=== PATIENT | female | born 1940 | race Two or more races ===

== ENCOUNTER 2023-02-26 12:53 | Inpatient (IN) | payer OTHER ==
[2023-02-26 15:03] LABS: BASO % 0.8 % (0-2.0); EOS % 2.4 % (0-4.5); HEMATOCRIT 39.9 % (32.4-45.2); HEMOGLOBIN 13.4 GM/dL (10.7-15.3); MCH 30.6 pg (25.7-33.7); MCHC 33.6 g/dl (32.0-36.0); MEAN CELL VOLUME 91.1 fl (80-96); MEAN PLT VOLUME 7.1 fl (7.5-11.1); MONO % 7.2 % (3.8-10.2); NEUT % 66.6 % (42.8-82.8); PLATELET COUNT 249 10^3/uL (134-434); RBC 4.38 M/mm3 (3.60-5.2); RDW 14.3 % (11.6-15.6); WHITE BLOOD COUNT 6.8 K/mm3 (4.0-10.0)
[2023-02-26 15:19] LABS: POTASSIUM 5.6 mmol/L (3.5-5.1)
[2023-02-26 15:21] LABS: CALCIUM 9.6 mg/dL (8.5-10.1)
[2023-02-26 15:22] LABS: ALBUMIN 3.4 g/dl (3.4-5.0); BLOOD UREA NITROGEN 23.7 mg/dL (7-18)
[2023-02-26 15:25] LABS: CREATININE 1.2 mg/dL (0.55-1.3)
[2023-02-26 15:26] LABS: TOT PROT 7.1 g/dl (6.4-8.2)
[2023-02-26 15:27] LABS: BILIRUBIN,TOTAL 0.5 mg/dL (0.2-1)
[2023-02-26 15:30] LABS: N-TERMINAL BNP 965.9 pg/ml (5-450)
[2023-02-26] MEDS ORDERED: ACETAMINOPHEN 500 MG TABLET (FP) PO PRN (17:00)
[2023-02-26] MEDS ORDERED: HALOPERIDOL LACTATE 5 MG/ML IM PRN ×2 (17:59→19:38)
[2023-02-26] MEDS ORDERED: HALOPERIDOL LACTATE 5 MG/ML ONE ×2 (18:05→21:52)
[2023-02-26] MEDS ORDERED: HALOPERIDOL LACTATE 5 MG/ML IVPUSH PRN (18:17)
[2023-02-26] MEDS ORDERED: HALOPERIDOL LACTATE 5 MG/ML IM ONE (19:29)
[2023-02-26] MEDS ORDERED: ATORVASTATIN CA 40 MG TABLET (FP) ONE (19:52)
[2023-02-26] MEDS ORDERED: MELATONIN 5 MG TABLETS ONE (19:52)
[2023-02-26] MEDS ORDERED: QUEtiapine FUMARATE 25 MG TABLET ONE (19:53)
[2023-02-26] MEDS ORDERED: ASCORBIC ACID 500 MG TABLET (FP) ONE (19:53)
[2023-02-26] MEDS: ARTIFICIAL TEARS OPHTHALMIC DROPS OD SCH (20:02)
[2023-02-26] MEDS: LIDOCAINE PATCH REMOVAL MC SCH (21:27)
[2023-02-26] MEDS: ATORVASTATIN CA 40 MG TABLET (FP) PO SCH (21:27)
[2023-02-26] MEDS: QUEtiapine FUMARATE 50 MG TABLET PO SCH (21:28)
[2023-02-26] MEDS: MEMANTINE HCL 10 MG TABLET (FP) PO SCH (21:28)
[2023-02-26] MEDS: ASCORBIC ACID 500 MG TABLET (FP) PO SCH (21:28)
[2023-02-26] MEDS: CALCIUM 500MG/VIT-D 200 UNITS COMBO TABLET (FP) PO SCH (21:28)
[2023-02-26] MEDS: MELATONIN 5 MG TABLETS PO SCH (21:28)
[2023-02-26] MEDS: SENNOSIDES 8.6MG TABLET (FP) PO SCH (21:28)
[2023-02-27] MEDS: ARTIFICIAL TEARS OPHTHALMIC DROPS OD SCH ×2 (07:38→21:03)
[2023-02-27] MEDS ORDERED: POLYETHYLENE GLYCOL (HEALTHYLAX) 3350 17 GM PACKET ONE (09:16)
[2023-02-27] MEDS: FERROUS SO4 325 MG TABLET (FP) PO SCH (09:35)
[2023-02-27] MEDS: POLYETHYLENE GLYCOL (HEALTHYLAX) 3350 17 GM PACKET PO SCH (09:35)
[2023-02-27] MEDS: LIDOCAINE 4% PATCH TP SCH (09:35)
[2023-02-27] MEDS: ASPIRIN COATED 81 MG TABLET.EC PO SCH (09:35)
[2023-02-27] MEDS: ENOXAPARIN NA (PORCINE) 40 MG/0.4 ML DISP.SYRIN SQ SCH (09:35)
[2023-02-27] MEDS: ZINC SULFATE 220 MG CAPSULE (FP) PO SCH (09:36)
[2023-02-27] MEDS: ASCORBIC ACID 500 MG TABLET (FP) PO SCH ×2 (09:36→21:57)
[2023-02-27] MEDS: MEMANTINE HCL 10 MG TABLET (FP) PO SCH ×2 (09:36→21:57)
[2023-02-27] MEDS: CALCIUM 500MG/VIT-D 200 UNITS COMBO TABLET (FP) PO SCH ×2 (09:36→21:57)
[2023-02-27] MEDS: CHOLECALCIFEROL (VIT D3) 1,000 UNIT (25 MCG) TABLET PO SCH (09:36)
[2023-02-27] MEDS: QUEtiapine FUMARATE 100 MG TABLET (FP) PO SCH (09:36)
[2023-02-27] MEDS: LACTATED RINGERS SOLUTION 1,000 ML/1,000 ML INFUS.BAG IV SCH (11:07)
[2023-02-27] MEDS ORDERED: HALOPERIDOL LACTATE 5 MG/ML IM PRN (11:22)
[2023-02-27] MEDS ORDERED: REMDESIVIR 200 MG in SODIUM CHLORIDE 250 ML IVPB ONE (18:00)
[2023-02-27] MEDS ORDERED: MAGNESIUM HYDROX 2400MG/30ML ORAL SUSPENSION 30 ML CUP PO SCH (18:00)
[2023-02-27] MEDS ORDERED: MAGNESIUM HYDROX 2400MG/30ML ORAL SUSPENSION 30 ML CUP ONE (20:17)
[2023-02-27] MEDS: ATORVASTATIN CA 40 MG TABLET (FP) PO SCH (21:57)
[2023-02-27] MEDS: QUEtiapine FUMARATE 50 MG TABLET PO SCH (21:57)
[2023-02-27] MEDS: LIDOCAINE PATCH REMOVAL MC SCH (21:57)
[2023-02-27] MEDS: SENNOSIDES 8.6MG TABLET (FP) PO SCH (21:57)
[2023-02-27] MEDS: MELATONIN 5 MG TABLETS PO SCH (21:57)
[2023-02-27 22:23] LABS: URINE APPEARANCE CLEAR; URINE BILIRUBIN NEGATIVE (NEGATIVE); URINE COLOR YELLOW; URINE GLUCOSE (UA) NEGATIVE (NEGATIVE); URINE KETONE NEGATIVE (NEGATIVE); URINE LEUK ESTERASE NEGATIVE (NEGATIVE); URINE NITRITE NEGATIVE (NEGATIVE); URINE PROTEIN NEGATIVE (NEGATIVE); URINE UROBILINOGEN 0.2 mg/dL (0.2-1.0)
[2023-02-28 02:07] LABS: HEMATOCRIT 40.8 % (32.4-45.2); HEMOGLOBIN 13.5 GM/dL (10.7-15.3); MCH 29.9 pg (25.7-33.7); MCHC 33.2 g/dl (32.0-36.0); MEAN CELL VOLUME 90.2 fl (80-96); MEAN PLT VOLUME 6.8 fl (7.5-11.1); PLATELET COUNT 230 10^3/uL (134-434); RBC 4.53 M/mm3 (3.60-5.2); RDW 14.1 % (11.6-15.6)
[2023-02-28 02:23] LABS: POTASSIUM 3.8 mmol/L (3.5-5.1); SODIUM 143 mmol/L (136-145)
[2023-02-28 02:26] LABS: CALCIUM 9.7 mg/dL (8.5-10.1); CO2 29 mmol/L (21-32)
[2023-02-28 02:27] LABS: BLOOD UREA NITROGEN 26.5 mg/dL (7-18); GLUCOSE,RANDOM 97 mg/dL (74-106)
[2023-02-28 02:42] LABS: ANION GAP 4 mmol/L (4-13); CHLORIDE 110 mmol/L (98-107)
[2023-02-28 03:13] VITALS: BMI 32.2
[2023-02-28] MEDS: ARTIFICIAL TEARS OPHTHALMIC DROPS OD SCH ×2 (05:35→17:47)
[2023-02-28] MEDS: LACTATED RINGERS SOLUTION 1,000 ML/1,000 ML INFUS.BAG IV SCH ×2 (06:47→17:45)
[2023-02-28] MEDS: MEMANTINE HCL 10 MG TABLET (FP) PO SCH ×2 (09:56→22:51)
[2023-02-28] MEDS: ENOXAPARIN NA (PORCINE) 40 MG/0.4 ML DISP.SYRIN SQ SCH (09:56)
[2023-02-28] MEDS: LIDOCAINE 4% PATCH TP SCH (09:56)
[2023-02-28] MEDS: POLYETHYLENE GLYCOL (HEALTHYLAX) 3350 17 GM PACKET PO SCH (09:56)
[2023-02-28] MEDS: QUEtiapine FUMARATE 100 MG TABLET (FP) PO SCH (09:57)
[2023-02-28] MEDS: CHOLECALCIFEROL (VIT D3) 1,000 UNIT (25 MCG) TABLET PO SCH (09:57)
[2023-02-28] MEDS: ZINC SULFATE 220 MG CAPSULE (FP) PO SCH (09:57)
[2023-02-28] MEDS: CALCIUM 500MG/VIT-D 200 UNITS COMBO TABLET (FP) PO SCH ×2 (09:57→22:50)
[2023-02-28] MEDS: ASCORBIC ACID 500 MG TABLET (FP) PO SCH ×2 (09:57→22:50)
[2023-02-28] MEDS: FERROUS SO4 325 MG TABLET (FP) PO SCH (09:57)
[2023-02-28] MEDS: ASPIRIN COATED 81 MG TABLET.EC PO SCH (09:57)
[2023-02-28] MEDS ORDERED: REMDESIVIR 100 MG in SODIUM CHLORIDE 250 ML IVPB ONE (16:08)
[2023-02-28] MEDS ORDERED: QUEtiapine FUMARATE 25 MG TABLET ONE (21:51)
[2023-02-28] MEDS: QUEtiapine FUMARATE 50 MG TABLET PO SCH (22:50)
[2023-02-28] MEDS: MELATONIN 5 MG TABLETS PO SCH (22:50)
[2023-02-28] MEDS: LIDOCAINE PATCH REMOVAL MC SCH (22:51)
[2023-02-28] MEDS: SENNOSIDES 8.6MG TABLET (FP) PO SCH (22:51)
[2023-02-28] MEDS: ATORVASTATIN CA 40 MG TABLET (FP) PO SCH (22:51)
[2023-03-01] MEDS: ARTIFICIAL TEARS OPHTHALMIC DROPS OD SCH ×2 (05:48→18:02)
[2023-03-01 07:16] LABS: BASO % 0.4 % (0-2.0); HEMATOCRIT 39.9 % (32.4-45.2); HEMOGLOBIN 13.4 GM/dL (10.7-15.3); LYMPH % 25.5 % (8-40); MCH 30.1 pg (25.7-33.7); MCHC 33.6 g/dl (32.0-36.0); MEAN CELL VOLUME 89.6 fl (80-96); MONO % 8.3 % (3.8-10.2); NEUT % 62.8 % (42.8-82.8); PLATELET COUNT 241 10^3/uL (134-434); RBC 4.46 M/mm3 (3.60-5.2); RDW 13.9 % (11.6-15.6); WHITE BLOOD COUNT 7.2 K/mm3 (4.0-10.0)
[2023-03-01 07:34] LABS: POTASSIUM 3.8 mmol/L (3.5-5.1)
[2023-03-01 07:57] LABS: ALBUMIN 3.2 g/dl (3.4-5.0); CALCIUM 9.9 mg/dL (8.5-10.1)
[2023-03-01 07:58] LABS: BLOOD UREA NITROGEN 22.8 mg/dL (7-18)
[2023-03-01 08:01] LABS: CREATININE 0.7 mg/dL (0.55-1.3)
[2023-03-01 08:02] LABS: BILIRUBIN,TOTAL 0.4 mg/dL (0.2-1); TOT PROT 6.2 g/dl (6.4-8.2)
[2023-03-01] MEDS: LIDOCAINE 4% PATCH TP SCH (11:28)
[2023-03-01] MEDS: ASPIRIN COATED 81 MG TABLET.EC PO SCH (11:29)
[2023-03-01] MEDS: POLYETHYLENE GLYCOL (HEALTHYLAX) 3350 17 GM PACKET PO SCH (11:29)
[2023-03-01] MEDS: QUEtiapine FUMARATE 100 MG TABLET (FP) PO SCH (11:29)
[2023-03-01] MEDS: FERROUS SO4 325 MG TABLET (FP) PO SCH (11:29)
[2023-03-01] MEDS: MEMANTINE HCL 10 MG TABLET (FP) PO SCH ×2 (11:30→22:59)
[2023-03-01] MEDS: ASCORBIC ACID 500 MG TABLET (FP) PO SCH ×2 (11:31→22:34)
[2023-03-01] MEDS: ZINC SULFATE 220 MG CAPSULE (FP) PO SCH (11:31)
[2023-03-01] MEDS: CALCIUM 500MG/VIT-D 200 UNITS COMBO TABLET (FP) PO SCH ×2 (11:31→22:34)
[2023-03-01] MEDS: ENOXAPARIN NA (PORCINE) 40 MG/0.4 ML DISP.SYRIN SQ SCH (11:41)
[2023-03-01] MEDS: CHOLECALCIFEROL (VIT D3) 1,000 UNIT (25 MCG) TABLET PO SCH (11:43)
[2023-03-01] MEDS ORDERED: REMDESIVIR 100 MG in SODIUM CHLORIDE 270 ML IVPB ONE (17:00)
[2023-03-01] MEDS: LACTATED RINGERS SOLUTION 1,000 ML/1,000 ML INFUS.BAG IV SCH (18:02)
[2023-03-01] MEDS ORDERED: QUEtiapine FUMARATE 25 MG TABLET ONE (21:50)
[2023-03-01] MEDS: MELATONIN 5 MG TABLETS PO SCH (22:33)
[2023-03-01] MEDS: ATORVASTATIN CA 40 MG TABLET (FP) PO SCH (22:33)
[2023-03-01] MEDS: LIDOCAINE PATCH REMOVAL MC SCH (22:33)
[2023-03-01] MEDS: SENNOSIDES 8.6MG TABLET (FP) PO SCH (22:34)
[2023-03-01] MEDS: QUEtiapine FUMARATE 50 MG TABLET PO SCH (22:34)
[2023-03-02] MEDS: ARTIFICIAL TEARS OPHTHALMIC DROPS OD SCH (06:53)
[2023-03-02 08:09] LABS: HEMATOCRIT 41.7 % (32.4-45.2); HEMOGLOBIN 14.1 GM/dL (10.7-15.3); MCH 30.3 pg (25.7-33.7); MCHC 33.7 g/dl (32.0-36.0); MEAN CELL VOLUME 89.8 fl (80-96); MEAN PLT VOLUME 7.1 fl (7.5-11.1); PLATELET COUNT 268 10^3/uL (134-434); RBC 4.64 M/mm3 (3.60-5.2); RDW 13.7 % (11.6-15.6)
[2023-03-02 08:25] LABS: POTASSIUM 3.8 mmol/L (3.5-5.1)
[2023-03-02 08:38] LABS: BLOOD UREA NITROGEN 24.8 mg/dL (7-18)
[2023-03-02 08:41] LABS: CREATININE 1.1 mg/dL (0.55-1.3)
[2023-03-02] MEDS: POLYETHYLENE GLYCOL (HEALTHYLAX) 3350 17 GM PACKET PO SCH (11:47)
[2023-03-02] MEDS: LIDOCAINE 4% PATCH TP SCH (11:47)
[2023-03-02] MEDS: ENOXAPARIN NA (PORCINE) 40 MG/0.4 ML DISP.SYRIN SQ SCH (11:48)
[2023-03-02] MEDS: CALCIUM 500MG/VIT-D 200 UNITS COMBO TABLET (FP) PO SCH ×2 (11:48→22:40)
[2023-03-02] MEDS: FERROUS SO4 325 MG TABLET (FP) PO SCH (11:48)
[2023-03-02] MEDS: ASPIRIN COATED 81 MG TABLET.EC PO SCH (11:48)
[2023-03-02] MEDS: ZINC SULFATE 220 MG CAPSULE (FP) PO SCH (11:49)
[2023-03-02] MEDS: MEMANTINE HCL 10 MG TABLET (FP) PO SCH ×2 (11:49→18:26)
[2023-03-02] MEDS: ASCORBIC ACID 500 MG TABLET (FP) PO SCH ×3 (11:49→23:44)
[2023-03-02] MEDS: QUEtiapine FUMARATE 100 MG TABLET (FP) PO SCH (11:49)
[2023-03-02] MEDS: CHOLECALCIFEROL (VIT D3) 1,000 UNIT (25 MCG) TABLET PO SCH (11:50)
[2023-03-02] MEDS: LACTATED RINGERS SOLUTION 1,000 ML/1,000 ML INFUS.BAG IV SCH (15:09)
[2023-03-02] MEDS ORDERED: ACETAMINOPHEN 500 MG TABLET (FP) PO PRN (15:40)
[2023-03-02] MEDS ORDERED: LACTATED RINGERS SOLUTION 1,000 ML/1,000 ML INFUS.BAG IV SCH (15:40)
[2023-03-02] MEDS ORDERED: HALOPERIDOL LACTATE 5 MG/ML IM PRN (15:40)
[2023-03-02] MEDS ORDERED: ARTIFICIAL TEARS OPHTHALMIC DROPS OD SCH (18:00)
[2023-03-02] MEDS ORDERED: MAGNESIUM HYDROX 2400MG/30ML ORAL SUSPENSION 30 ML CUP PO SCH (18:00)
[2023-03-02] MEDS: MELATONIN 5 MG TABLETS PO SCH ×2 (22:40→23:37)
[2023-03-02] MEDS: QUEtiapine FUMARATE 50 MG TABLET PO SCH (22:40)
[2023-03-02] MEDS: ATORVASTATIN CA 40 MG TABLET (FP) PO SCH ×2 (22:41→23:43)
[2023-03-02] MEDS: SENNOSIDES 8.6MG TABLET (FP) PO SCH ×2 (22:41→23:36)
[2023-03-03] MEDS: ENOXAPARIN NA (PORCINE) 40 MG/0.4 ML DISP.SYRIN SQ SCH (09:52)
[2023-03-03] MEDS: LIDOCAINE 4% PATCH TP SCH (09:52)
[2023-03-03] MEDS: CALCIUM 500MG/VIT-D 200 UNITS COMBO TABLET (FP) PO SCH ×2 (09:53→17:33)
[2023-03-03] MEDS: ZINC SULFATE 220 MG CAPSULE (FP) PO SCH (09:53)
[2023-03-03] MEDS: ASPIRIN COATED 81 MG TABLET.EC PO SCH (09:53)
[2023-03-03] MEDS: MEMANTINE HCL 10 MG TABLET (FP) PO SCH ×2 (09:54→17:33)
[2023-03-03] MEDS: CHOLECALCIFEROL (VIT D3) 1,000 UNIT (25 MCG) TABLET PO SCH (09:54)
[2023-03-03] MEDS: FERROUS SO4 325 MG TABLET (FP) PO SCH (09:54)
[2023-03-03] MEDS: POLYETHYLENE GLYCOL (HEALTHYLAX) 3350 17 GM PACKET PO SCH (09:54)
[2023-03-03] MEDS: QUEtiapine FUMARATE 100 MG TABLET (FP) PO SCH (09:54)
[2023-03-03] MEDS: ASCORBIC ACID 500 MG TABLET (FP) PO SCH ×4 (09:54→23:32)
[2023-03-03] MEDS ORDERED: LIDOCAINE PATCH REMOVAL MC SCH (22:00)
[2023-03-03] MEDS ORDERED: QUEtiapine FUMARATE 25 MG TABLET ONE (22:36)
[2023-03-03] MEDS: MELATONIN 5 MG TABLETS PO SCH ×2 (23:22→23:32)
[2023-03-03] MEDS: ATORVASTATIN CA 40 MG TABLET (FP) PO SCH ×2 (23:22→23:30)
[2023-03-03] MEDS: SENNOSIDES 8.6MG TABLET (FP) PO SCH ×2 (23:23→23:30)
[2023-03-03] MEDS: QUEtiapine FUMARATE 50 MG TABLET PO SCH ×2 (23:23→23:31)
[2023-03-04 02:08] VITALS: RESP 18
[2023-03-04 12:30] VITALS: BP 125/68; PULSE 72; TEMP 98
[2023-03-04] MEDS: MEMANTINE HCL 10 MG TABLET (FP) PO SCH (12:33)
[2023-03-04] MEDS: LIDOCAINE 4% PATCH TP SCH (12:33)
[2023-03-04] MEDS: CALCIUM 500MG/VIT-D 200 UNITS COMBO TABLET (FP) PO SCH (12:33)
[2023-03-04] MEDS: QUEtiapine FUMARATE 100 MG TABLET (FP) PO SCH (12:34)
[2023-03-04] MEDS: ENOXAPARIN NA (PORCINE) 40 MG/0.4 ML DISP.SYRIN SQ SCH (12:34)
[2023-03-04] MEDS: FERROUS SO4 325 MG TABLET (FP) PO SCH (12:34)
[2023-03-04] MEDS: POLYETHYLENE GLYCOL (HEALTHYLAX) 3350 17 GM PACKET PO SCH (12:34)
[2023-03-04] MEDS: ZINC SULFATE 220 MG CAPSULE (FP) PO SCH (12:34)
[2023-03-04] MEDS: ASPIRIN COATED 81 MG TABLET.EC PO SCH (12:34)
[2023-03-04] MEDS: CHOLECALCIFEROL (VIT D3) 1,000 UNIT (25 MCG) TABLET PO SCH (12:34)
[2023-03-04] MEDS: ASCORBIC ACID 500 MG TABLET (FP) PO SCH (12:34)
== END 2023-03-04 12:40 | DRG 178 ==
LOC: JER 12:53 → OBSVTOIN 16:25 → JERBED 16:25 → J4S 02-28 03:05 → J5S 03-02 15:35
PROVIDERS: ADMIT Internal Medicine; ATTEND Internal Medicine
PROC: XW033E5 Introduction of Remdesivir Anti-infective into Peripheral Vein, Percutaneous Approach, New Technology Group 5 (ICD-10-PCS; principal; 2023-02-27)
DX: U07.1 COVID-19 (principal); G93.49 Other encephalopathy; E87.5 Hyperkalemia; F20.9 Schizophrenia, unspecified; F03.90 Unspecified dementia, unspecified severity, without behavioral disturbance, psychotic disturbance, mood disturbance, and anxiety; I10 Essential (primary) hypertension; E78.5 Hyperlipidemia, unspecified; F39 Unspecified mood [affective] disorder
CPT/HCPCS: 0241U-QW; 36415; 71045-TC-FY; 80048; 80053; 81003; 82550; 82553; 83880; 84484; 85025; 85027; 86140; 93005; 93010; 99285-25; J0248

== ENCOUNTER 2023-07-24 12:14 | Inpatient (IN) | payer OTHER ==
[2023-07-24] MEDS: SODIUM CHLORIDE 0.9% 500 ML INFUS.BAG IV ONE (14:49)
[2023-07-24 14:51] LABS: EPI CELLS 5 /uL (0-25.1); HYALINE CASTS 0 /uL (0-3.1); PH,URINE 6.5 (5.0-8.0); URINE APPEARANCE CLOUDY; URINE BACTERIA 3334 /uL (0-1359); URINE BILIRUBIN NEGATIVE (NEGATIVE); URINE COLOR YELLOW; URINE GLUCOSE (UA) NEGATIVE (NEGATIVE); URINE KETONE NEGATIVE (NEGATIVE); URINE LEUK ESTERASE TRACE (NEGATIVE); URINE NITRITE NEGATIVE (NEGATIVE); URINE PROTEIN NEGATIVE (NEGATIVE); URINE RBC 15 /uL (0-23.9); URINE UROBILINOGEN 0.2 mg/dL (0.2-1.0); URINE WBC 6 /uL (0-25.8)
[2023-07-24 15:45] LABS: BASO % 0.8 % (0-2.0); EOS % 2.9 % (0-4.5); HEMATOCRIT 41.7 % (32.4-45.2); LYMPH % 29.1 % (8-40); MCH 30.2 pg (25.7-33.7); MCHC 33.5 g/dl (32.0-36.0); MEAN CELL VOLUME 90.1 fl (80-96); MEAN PLT VOLUME 7.5 fl (7.5-11.1); MONO % 6.8 % (3.8-10.2); NEUT % 60.4 % (42.8-82.8); PLATELET COUNT 275 10^3/uL (134-434); RBC 4.63 M/mm3 (3.60-5.2); RDW 14.4 % (11.6-15.6); WHITE BLOOD COUNT 6.2 K/mm3 (4.0-10.0)
[2023-07-24 15:56] LABS: INR 0.98 (0.83-1.09); PROTHROMBIN TIME (PATIENT) 11.1 SEC (9.7-13.0)
[2023-07-24 15:58] LABS: ACTIVATED PTT 30.1 SECONDS (25.2-36.5)
[2023-07-24 16:03] LABS: POTASSIUM 4.3 mmol/L (3.5-5.1)
[2023-07-24 16:05] LABS: ALBUMIN 3.4 g/dl (3.4-5.0); CALCIUM 9.4 mg/dL (8.5-10.1); MAGNESIUM 1.9 mg/dL (1.8-2.4)
[2023-07-24 16:08] LABS: CREATININE 0.9 mg/dL (0.55-1.3)
[2023-07-24 16:10] LABS: TOT PROT 6.6 g/dl (6.4-8.2)
[2023-07-24] MEDS ORDERED: CEFTRIAXONE 1 GM/50 ML BAG ONE (16:11)
[2023-07-24 16:13] LABS: BILIRUBIN,TOTAL 0.6 mg/dL (0.2-1)
[2023-07-24] MEDS: CEFTRIAXONE 1,000 MG in DEXTROSE 5%-WATER - 50 ML IVPB ONE (16:17)
[2023-07-24] MEDS: ARTIFICIAL TEARS OPHTHALMIC DROPS OU SCH (20:10)
[2023-07-24 21:29] VITALS: BMI 34.2
[2023-07-24] MEDS: MAGNESIUM HYDROX 2400MG/30ML ORAL SUSPENSION 30 ML CUP PO SCH (21:40)
[2023-07-24] MEDS: VALPROATE SODIUM 250 MG/5 ML UNIT DOSE CUP PO SCH (21:40)
[2023-07-24] MEDS: MEMANTINE HCL 10 MG TABLET (FP) PO SCH (21:41)
[2023-07-24] MEDS: CALCIUM 500MG/VIT-D 200 UNITS COMBO TABLET (FP) PO SCH (21:41)
[2023-07-24] MEDS: ACETAMINOPHEN 500 MG TABLET (FP) PO PRN (21:41)
[2023-07-24] MEDS: SENNOSIDES 8.6MG TABLET (FP) PO SCH (21:41)
[2023-07-24] MEDS: ATORVASTATIN CA 40 MG TABLET (FP) PO SCH (21:41)
[2023-07-24] MEDS: MELATONIN 5 MG TABLETS PO SCH (21:41)
[2023-07-24] MEDS: QUEtiapine FUMARATE 100 MG TABLET (FP) PO SCH (21:42)
[2023-07-24] MEDS: LIDOCAINE PATCH REMOVAL MC SCH (21:58)
[2023-07-24] MEDS: ASCORBIC ACID 1,000 MG TABLET PO SCH (21:59)
[2023-07-24] MEDS: ASCORBIC ACID 500 MG TABLET (FP) PO SCH (22:00)
[2023-07-25] MEDS ORDERED: RAPID SEQUENCE INTUBATION KIT NR ONE (03:24)
[2023-07-25 07:12] LABS: BASO % 0.8 % (0-2.0); EOS % 2.9 % (0-4.5); HEMATOCRIT 41.1 % (32.4-45.2); HEMOGLOBIN 13.5 GM/dL (10.7-15.3); MCH 29.8 pg (25.7-33.7); MCHC 32.8 g/dl (32.0-36.0); MEAN CELL VOLUME 90.7 fl (80-96); MEAN PLT VOLUME 6.9 fl (7.5-11.1); NEUT % 57.3 % (42.8-82.8); PLATELET COUNT 211 10^3/uL (134-434); RBC 4.53 M/mm3 (3.60-5.2); RDW 14.2 % (11.6-15.6); WHITE BLOOD COUNT 7.3 K/mm3 (4.0-10.0)
[2023-07-25 07:33] LABS: POTASSIUM 4.2 mmol/L (3.5-5.1)
[2023-07-25 07:41] LABS: CALCIUM 9.3 mg/dL (8.5-10.1)
[2023-07-25 07:42] LABS: BILIRUBIN,TOTAL 1.2 mg/dL (0.2-1); TOT PROT 6.9 g/dl (6.4-8.2)
[2023-07-25 07:44] LABS: BLOOD UREA NITROGEN 20.1 mg/dL (7-18); CREATININE 0.9 mg/dL (0.55-1.3); PHOSPHOROUS 2.6 mg/dL (2.5-4.9)
[2023-07-25 07:45] LABS: ALBUMIN 3.5 g/dl (3.4-5.0); MAGNESIUM 1.9 mg/dL (1.8-2.4)
[2023-07-25] MEDS: LIDOCAINE 4% PATCH TP SCH (09:14)
[2023-07-25] MEDS: POLYETHYLENE GLYCOL (HEALTHYLAX) 3350 17 GM PACKET PO SCH (09:15)
[2023-07-25] MEDS: ENOXAPARIN NA (PORCINE) 40 MG/0.4 ML DISP.SYRIN SQ SCH (09:16)
[2023-07-25] MEDS: ASPIRIN COATED 81 MG TABLET.EC PO SCH (09:16)
[2023-07-25] MEDS: FERROUS SO4 325 MG TABLET (FP) PO SCH (09:16)
[2023-07-25] MEDS: LORazepam 2 MG/ML SDV VIAL IVPUSH ONE (10:40)
[2023-07-26] MEDS ORDERED: metoPROLOL SUCCINATE 25 MG TAB.SR.24H (FP) PO SCH (08:01)
[2023-07-26 08:34] LABS: BASO % 0.6 % (0-2.0); EOS % 3.1 % (0-4.5); HEMATOCRIT 41.1 % (32.4-45.2); HEMOGLOBIN 14.1 GM/dL (10.7-15.3); LYMPH % 33.8 % (8-40); MCH 30.8 pg (25.7-33.7); MCHC 34.2 g/dl (32.0-36.0); MEAN PLT VOLUME 6.9 fl (7.5-11.1); MONO % 8.8 % (3.8-10.2); NEUT % 53.7 % (42.8-82.8); PLATELET COUNT 219 10^3/uL (134-434); RBC 4.57 M/mm3 (3.60-5.2); RDW 14.2 % (11.6-15.6)
[2023-07-26 08:46] LABS: ALBUMIN 3.3 g/dl (3.4-5.0); BLOOD UREA NITROGEN 17.1 mg/dL (7-18)
[2023-07-26 08:49] LABS: CREATININE 0.9 mg/dL (0.55-1.3)
[2023-07-26 08:50] LABS: BILIRUBIN,TOTAL 0.8 mg/dL (0.2-1); TOT PROT 6.5 g/dl (6.4-8.2)
[2023-07-26 08:57] LABS: POTASSIUM 4.2 mmol/L (3.5-5.1)
[2023-07-26] MEDS: CEFTRIAXONE 1 GM in DEXTROSE 5%-WATER - 50 ML IVPB SCH (12:25)
[2023-07-28 09:23] LABS: HEMATOCRIT 39.9 % (32.4-45.2); HEMOGLOBIN 13.3 GM/dL (10.7-15.3); MCH 30.3 pg (25.7-33.7); MCHC 33.2 g/dl (32.0-36.0); MEAN CELL VOLUME 91.2 fl (80-96); MEAN PLT VOLUME 6.8 fl (7.5-11.1); PLATELET COUNT 208 10^3/uL (134-434); RBC 4.37 M/mm3 (3.60-5.2); RDW 14.1 % (11.6-15.6); WHITE BLOOD COUNT 6.4 K/mm3 (4.0-10.0)
[2023-07-28 10:12] LABS: BLOOD UREA NITROGEN 20.9 mg/dL (7-18); CALCIUM 9.6 mg/dL (8.5-10.1)
[2023-07-28 10:13] LABS: MAGNESIUM 1.8 mg/dL (1.8-2.4); PHOSPHOROUS 3.3 mg/dL (2.5-4.9)
[2023-07-28 10:15] LABS: CREATININE 1.1 mg/dL (0.55-1.3)
[2023-07-28 14:41] VITALS: RESP 18
[2023-07-29 09:26] VITALS: BP 147/68; PULSE 67; TEMP 97.7
== END 2023-07-29 14:16 | DRG 312 ==
LOC: JER 12:14 → UNDOADMOB 12:57 → JERBED 12:57 → J4W 17:55 → INTOOBSV 17:59 → OBSVTOIN 17:59 → JERBED 07-25 14:09 → J4W 07-25 14:09 → OBSVTOIN 07-26 12:16
PROVIDERS: ADMIT Internal Medicine; ATTEND Internal Medicine
DX: R55 Syncope and collapse (principal); I50.22 Chronic systolic (congestive) heart failure; F20.9 Schizophrenia, unspecified; E78.5 Hyperlipidemia, unspecified; I25.5 Ischemic cardiomyopathy; I69.391 Dysphagia following cerebral infarction; R82.71 Bacteriuria; G30.9 Alzheimer's disease, unspecified; F02.80 Dementia in other diseases classified elsewhere, unspecified severity, without behavioral disturbance, psychotic disturbance, mood disturbance, and anxiety; I11.0 Hypertensive heart disease with heart failure; R41.0 Disorientation, unspecified
CPT/HCPCS: 36415; 70450-TC; 71045-TC-FY; 73564-TC-RT-FY; 76775-TC; 80048; 80053; 80061; 80164; 81003; 82607; 83735; 84100; 84436; 84443; 84484; 85025; 85027; 85610; 85730; 86850; 86900; 86901; 87086; 93005; 93010; 93306-TC; 93880-TC; 97116-GP; 97162-GP; 99285-25; G0378

== ENCOUNTER 2024-04-22 12:18 | Inpatient (IN) | payer OTHER ==
[2024-04-22 12:56] VITALS: RESP 18
[2024-04-22 13:27] LABS: VENOUS BASE EXCESS 0.4 mmol/L (-2-2); VENOUS O2 SATURATION 92.2 % (70-80); VENOUS PCO2 39.3 mmHg (38-52); VENOUS PH 7.418 (7.310-7.410)
[2024-04-22 13:33] LABS: BASO % 0.5 % (0-2.0); EOS % 1.9 % (0-4.5); HEMATOCRIT 45.2 % (32.4-45.2); HEMOGLOBIN 14.2 GM/dL (10.7-15.3); LYMPH % 12.9 % (8-40); MCH 28.9 pg (25.7-33.7); MCHC 31.4 g/dl (32.0-36.0); MEAN CELL VOLUME 92.1 fl (80-96); MEAN PLT VOLUME 8.4 fl (7.5-11.1); MONO % 5.6 % (3.8-10.2); NEUT % 79.1 % (42.8-82.8); PLATELET COUNT 218 10^3/uL (134-434); RDW 15.6 % (11.6-15.6); WHITE BLOOD COUNT 11.2 K/mm3 (4.0-10.0)
[2024-04-22 13:35] LABS: URINE APPEARANCE CLEAR; URINE BILIRUBIN NEGATIVE (NEGATIVE); URINE COLOR YELLOW; URINE GLUCOSE (UA) NEGATIVE (NEGATIVE); URINE KETONE NEGATIVE (NEGATIVE); URINE LEUK ESTERASE NEGATIVE (NEGATIVE); URINE NITRITE NEGATIVE (NEGATIVE); URINE PROTEIN NEGATIVE (NEGATIVE); URINE UROBILINOGEN 0.2 mg/dL (0.2-1.0)
[2024-04-22 13:42] LABS: INR 1.09 (0.83-1.09)
[2024-04-22 13:44] LABS: ACTIVATED PTT 27.3 SECONDS (25.2-36.5)
[2024-04-22 14:01] LABS: POTASSIUM 4.8 mmol/L (3.5-5.1)
[2024-04-22 14:03] LABS: ALBUMIN 3.2 g/dl (3.4-5.0); BLOOD UREA NITROGEN 20.1 mg/dL (7-18); CALCIUM 10.1 mg/dL (8.5-10.1); MAGNESIUM 2.2 mg/dL (1.8-2.4)
[2024-04-22 14:06] LABS: CREATININE 1.2 mg/dL (0.55-1.3); PHOSPHOROUS 3.1 mg/dL (2.5-4.9)
[2024-04-22 14:08] LABS: BILIRUBIN,TOTAL 0.6 mg/dL (0.2-1); TOT PROT 6.5 g/dl (6.4-8.2)
[2024-04-22 14:11] LABS: N-TERMINAL BNP 1229.8 pg/ml (5-450)
[2024-04-22] MEDS: SODIUM CHLORIDE 0.45% 1,000 ML IV SCH (15:00)
[2024-04-22] MEDS ORDERED: SODIUM CHLORIDE 0.45% 1,000 ML IV SCH (15:30)
[2024-04-22] MEDS: MAGNESIUM HYDROX 2400MG/30ML ORAL SUSPENSION 30 ML CUP PO SCH (20:07)
[2024-04-22] MEDS: MEMANTINE HCL 10 MG TABLET (FP) PO SCH (20:07)
[2024-04-22] MEDS: MELATONIN 5 MG TABLETS PO SCH (23:00)
[2024-04-22] MEDS: MIRTAZAPINE 15 MG TABLET (FP) PO SCH (23:00)
[2024-04-22] MEDS: EMPAGLIFLOZIN (JARDIANCE) 10 MG TABLET PO SCH (23:00)
[2024-04-22] MEDS: ATORVASTATIN CA 40 MG TABLET (FP) PO SCH (23:00)
[2024-04-22] MEDS: SACUBITRIL/VALSARTAN 24 MG-26 MG TABLET PO SCH (23:00)
[2024-04-22] MEDS: VALPROATE SODIUM 250 MG/5 ML UNIT DOSE CUP PO SCH (23:00)
[2024-04-22] MEDS: QUEtiapine FUMARATE 100 MG TABLET (FP) PO SCH (23:00)
[2024-04-22] MEDS: SENNOSIDES 8.6MG TABLET (FP) PO SCH (23:00)
[2024-04-22] MEDS: CALCIUM 500MG/VIT-D 200 UNITS COMBO TABLET (FP) PO SCH (23:00)
[2024-04-22] MEDS: ASCORBIC ACID 500 MG TABLET (FP) PO SCH (23:00)
[2024-04-22] MEDS: LIDOCAINE PATCH REMOVAL MC SCH (23:00)
[2024-04-22] MEDS: ARTIFICIAL TEARS OPHTHALMIC DROPS OU SCH (23:13)
[2024-04-23 08:52] LABS: HEMATOCRIT 44.3 % (32.4-45.2); HEMOGLOBIN 14.7 GM/dL (10.7-15.3); MCH 30.3 pg (25.7-33.7); MCHC 33.1 g/dl (32.0-36.0); MEAN CELL VOLUME 91.5 fl (80-96); MEAN PLT VOLUME 8.4 fl (7.5-11.1); PLATELET COUNT 189 10^3/uL (134-434); RBC 4.84 M/mm3 (3.60-5.2); RDW 15.1 % (11.6-15.6); WHITE BLOOD COUNT 7.4 K/mm3 (4.0-10.0)
[2024-04-23 09:15] LABS: POTASSIUM 3.6 mmol/L (3.5-5.1)
[2024-04-23 09:21] LABS: ALBUMIN 3.2 g/dl (3.4-5.0); BLOOD UREA NITROGEN 16.6 mg/dL (7-18); CALCIUM 9.8 mg/dL (8.5-10.1)
[2024-04-23 09:25] LABS: CREATININE 0.9 mg/dL (0.55-1.3); PHOSPHOROUS 3.2 mg/dL (2.5-4.9)
[2024-04-23 09:26] LABS: BILIRUBIN,TOTAL 0.9 mg/dL (0.2-1); TOT PROT 6.5 g/dl (6.4-8.2)
[2024-04-23] MEDS: ASPIRIN COATED 81 MG TABLET.EC PO SCH (10:33)
[2024-04-23] MEDS: METOPROLOL TARTRATE 50 MG TABLET (FP) PO SCH (10:34)
[2024-04-23] MEDS: POLYETHYLENE GLYCOL (HEALTHYLAX) 3350 17 GM PACKET PO SCH (10:34)
[2024-04-23] MEDS: ENOXAPARIN NA (PORCINE) 40 MG/0.4 ML DISP.SYRIN SQ SCH (10:34)
[2024-04-23] MEDS: LIDOCAINE 4% PATCH TP SCH (12:48)
[2024-04-23] MEDS: QUEtiapine FUMARATE 50 MG TABLET PO SCH (17:04)
[2024-04-23 17:55] LABS: URINE APPEARANCE CLOUDY; URINE BILIRUBIN NEGATIVE (NEGATIVE); URINE COLOR YELLOW; URINE GLUCOSE (UA) 3+ (NEGATIVE); URINE KETONE TRACE (NEGATIVE); URINE LEUK ESTERASE NEGATIVE (NEGATIVE); URINE NITRITE NEGATIVE (NEGATIVE); URINE PROTEIN TRACE (NEGATIVE); URINE UROBILINOGEN 0.2 mg/dL (0.2-1.0)
[2024-04-23] MEDS: POTASSIUM CHLORIDE 10 MEQ in DEXTROSE 5%-WATER - 1,000 ML IV SCH (20:21)
[2024-04-23] MEDS: QUEtiapine FUMARATE 100 MG TABLET (FP) PO SCH (21:23)
[2024-04-24 08:11] LABS: BASO % 0.8 % (0-2.0); EOS % 3.9 % (0-4.5); HEMATOCRIT 41.8 % (32.4-45.2); HEMOGLOBIN 13.4 GM/dL (10.7-15.3); LYMPH % 39.3 % (8-40); MCH 29.9 pg (25.7-33.7); MCHC 31.9 g/dl (32.0-36.0); MEAN CELL VOLUME 93.7 fl (80-96); MEAN PLT VOLUME 8.7 fl (7.5-11.1); PLATELET COUNT 166 10^3/uL (134-434); RBC 4.46 M/mm3 (3.60-5.2); RDW 15.1 % (11.6-15.6); WHITE BLOOD COUNT 6.3 K/mm3 (4.0-10.0)
[2024-04-24 08:31] LABS: POTASSIUM 3.5 mmol/L (3.5-5.1)
[2024-04-24 08:39] LABS: BLOOD UREA NITROGEN 15.7 mg/dL (7-18); CALCIUM 9.4 mg/dL (8.5-10.1)
[2024-04-24 08:40] LABS: ALBUMIN 2.9 g/dl (3.4-5.0)
[2024-04-24 08:44] LABS: BILIRUBIN,TOTAL 0.7 mg/dL (0.2-1); CREATININE 0.9 mg/dL (0.55-1.3); TOT PROT 5.6 g/dl (6.4-8.2)
[2024-04-24] MEDS ORDERED: QUEtiapine FUMARATE 25 MG TABLET PO PRN (11:07)
[2024-04-24] MEDS: MULTIVITAMINS (DAILY MVI) TABLET (FP) PO SCH (11:23)
[2024-04-24] MEDS: QUEtiapine FUMARATE 25 MG TABLET PO SCH (11:30)
[2024-04-24 14:35] VITALS: BMI 25.3
[2024-04-24] MEDS ORDERED: QUEtiapine FUMARATE 50 MG TABLET PO SCH (15:00)
[2024-04-24] MEDS: BISACODYL 10 MG SUPP.RECT PR ONE (16:42)
[2024-04-24] MEDS: QUEtiapine FUMARATE 100 MG TABLET (FP) PO SCH (21:24)
[2024-04-25 11:32] VITALS: BP 111/65; PULSE 69; TEMP 97.7
== END 2024-04-25 13:42 | DRG 884 ==
LOC: JER 12:18 → UNDOADMOB 15:33 → JERBED 15:33 → INTOOBSV 15:33 → JERBED 16:50 → OBSVTOIN 17:58 → J8W 18:00
PROVIDERS: ADMIT Internal Medicine; ATTEND Nurse Practitioner Family
DX: F03.90 Unspecified dementia, unspecified severity, without behavioral disturbance, psychotic disturbance, mood disturbance, and anxiety (principal); E87.0 Hyperosmolality and hypernatremia; I50.22 Chronic systolic (congestive) heart failure; N17.9 Acute kidney failure, unspecified; E44.0 Moderate protein-calorie malnutrition; F20.9 Schizophrenia, unspecified; E78.5 Hyperlipidemia, unspecified; I11.0 Hypertensive heart disease with heart failure; I69.391 Dysphagia following cerebral infarction; R13.10 Dysphagia, unspecified; I25.5 Ischemic cardiomyopathy; Z68.25 Body mass index [BMI] 25.0-25.9, adult; R63.0 Anorexia
CPT/HCPCS: 0241U-QW; 36415; 70450-TC; 71045-TC-FY; 80053; 80061; 80307; 81003; 82550; 82607; 82803; 82962; 83036; 83735; 83880; 84100; 84439; 84443; 84484; 85025; 85027; 85610; 85730; 86850; 86900; 86901; 87086; 93005; 93010; 97116-GP; 97161-GP; 99285-25; G0378

== ENCOUNTER 2024-06-20 11:18 | Inpatient (IN) | payer OTHER ==
[2024-06-20] MEDS ORDERED: ACETAMINOPHEN INJECTION 100 ML ONE (11:58)
[2024-06-20] MEDS ORDERED: PIPERACILLIN/TAZOB 4.5 GM 4.5 GM/100 ML BAG IVPB ONE (11:58)
[2024-06-20] MEDS ORDERED: VANCOMYCIN 1 GM PREMIX (F) 1 GM/200 ML BAG ONE (11:58)
[2024-06-20] MEDS: ACETAMINOPHEN 1000 MG/100 ML BAG IVPB ONE (13:05)
[2024-06-20] MEDS: SODIUM CHLORIDE 0.9% 500 ML INFUS.BAG IV ONE ×2 (13:05→14:48)
[2024-06-20] MEDS: PIPERACILLIN/TAZOB 4.5 GM 4.5 GM in DEXTROSE 5%-WATER 100 ML IVPB ONE (13:05)
[2024-06-20 13:25] LABS: ABSOLUTE IMMATURE GRANULOCYTES 0.11 x10^3/uL (0.0-0.031); BASOPHILS # 0.07 x10^3/uL (0.01-0.08); EOSINOPHIL % 0.2 % (0.7-5.8); EOSINOPHILS # 0.02 x10^3/uL (0.04-0.36); HEMATOCRIT 52.3 % (34.1-44.9); MCHC 28.7 g/dl (32.2-35.5); MEAN CELL VOLUME 102.8 fl (79.4-94.8); MEAN PLT VOLUME 10.3 fl (9.4-12.3); MONOCYTE # 0.95 x10^3/uL (0.24-0.86); MONOCYTE % 7.2 % (4.7-12.5); PLATELET COUNT 219 x10^3/uL (182-369); RDW 17.1 % (12.5-17.0)
[2024-06-20 13:34] LABS: VENOUS BASE EXCESS -3.8 mmol/L (-2-2); VENOUS O2 SATURATION 70.8 % (70-80); VENOUS PCO2 53.8 mmHg (38-52); VENOUS PH 7.266 (7.310-7.410)
[2024-06-20] MEDS: VANCOMYCIN 1,000 MG in DEXTROSE 5%-WATER - 250 ML IVPB ONE (13:50)
[2024-06-20 13:57] LABS: CHLORIDE 128 mmol/L (98-107); POTASSIUM 5.8 mmol/L (3.5-5.1); SODIUM 160 mmol/L (136-145)
[2024-06-20 13:59] LABS: BLOOD UREA NITROGEN 33.8 mg/dL (7-18); CALCIUM 10.3 mg/dL (8.5-10.1)
[2024-06-20 14:00] LABS: ALBUMIN 2.8 g/dl (3.4-5.0); ANION GAP 4 mmol/L (4-13); CO2 28 mmol/L (21-32); GLUCOSE,RANDOM 132 mg/dL (74-106)
[2024-06-20 14:03] LABS: SGOT/AST 82 U/L (15-37); SGPT/ALT 23 U/L (13-61)
[2024-06-20 14:03] LABS: EPI CELLS 22 /uL (0-25.1); HYALINE CASTS 1 /uL (0-3.1); URINE APPEARANCE TURBID; URINE BACTERIA >9,000 /uL (0-1359); URINE BILIRUBIN NEGATIVE (NEGATIVE); URINE COLOR YELLOW; URINE GLUCOSE (UA) NEGATIVE (NEGATIVE); URINE KETONE TRACE (NEGATIVE); URINE LEUK ESTERASE 3+ (NEGATIVE); URINE NITRITE POSITIVE (NEGATIVE); URINE PROTEIN 3+ (NEGATIVE); URINE WBC 5027 /uL (0-25.8)
[2024-06-20 14:04] LABS: TOT PROT 7.7 g/dl (6.4-8.2)
[2024-06-20 14:05] LABS: ALK PHOS 98 U/L (45-117)
[2024-06-20 14:07] LABS: N-TERMINAL BNP 2245.5 pg/ml (5-450)
[2024-06-20 14:25] LABS: CREATININE 1.5 mg/dL (0.55-1.3); MAGNESIUM 2.3 mg/dL (1.8-2.4)
[2024-06-20 14:34] LABS: URINE RBC 583.6 /uL (0-23.9)
[2024-06-20 14:59] LABS: LACTIC ACID 4.2 mmol/L (0.4-2.0)
[2024-06-20 15:16] LABS: CHLORIDE 130 mmol/L (98-107); POTASSIUM 3.9 mmol/L (3.5-5.1); SODIUM 162 mmol/L (136-145)
[2024-06-20 15:18] LABS: ALBUMIN 2.5 g/dl (3.4-5.0); ANION GAP 5 mmol/L (4-13); BLOOD UREA NITROGEN 32.9 mg/dL (7-18); CALCIUM 10.1 mg/dL (8.5-10.1); CO2 28 mmol/L (21-32); GLUCOSE,RANDOM 215 mg/dL (74-106)
[2024-06-20 15:21] LABS: SGOT/AST 26 U/L (15-37); SGPT/ALT 14 U/L (13-61)
[2024-06-20 15:22] LABS: CREATININE 1.4 mg/dL (0.55-1.3)
[2024-06-20 15:23] LABS: TOT PROT 6.3 g/dl (6.4-8.2)
[2024-06-20 15:24] LABS: ALK PHOS 81 U/L (45-117)
[2024-06-20 15:25] LABS: BILIRUBIN,TOTAL 0.8 mg/dL (0.2-1)
[2024-06-20] MEDS: SODIUM CHLORIDE 0.45% 1,000 ML IV SCH ×2 (17:15→20:47)
[2024-06-20] MEDS ORDERED: LACTATED RINGERS SOLUTION 1000 ML INFUS.BAG IV ONE (18:00)
[2024-06-20 20:47] LABS: LACTIC ACID 5.5 mmol/L (0.4-2.0)
[2024-06-20] MEDS ORDERED: PIPERACILLIN/TAZOB 4.5 GM 4.5 GM in DEXTROSE 5%-WATER 100 ML IVPB SCH (21:00)
[2024-06-20 22:39] LABS: CHLORIDE 129 mmol/L (98-107); POTASSIUM 5.1 mmol/L (3.5-5.1)
[2024-06-20 22:41] LABS: BLOOD UREA NITROGEN 33.6 mg/dL (7-18); CALCIUM 9.4 mg/dL (8.5-10.1); CO2 28 mmol/L (21-32); GLUCOSE,RANDOM 127 mg/dL (74-106)
[2024-06-20 22:43] LABS: ANION GAP 4 mmol/L (4-13); SODIUM 162 mmol/L (136-145)
[2024-06-20 22:44] LABS: CREATININE 1.3 mg/dL (0.55-1.3)
[2024-06-21] MEDS ORDERED: LORazepam 2 MG/ML SDV VIAL IVPUSH PRN (02:54)
[2024-06-21] MEDS: HEPARIN NA (PORCINE) 5,000 UNITS/ML 1ML VIAL SQ SCH (05:45)
[2024-06-21 09:01] LABS: HEMATOCRIT 46.3 % (34.1-44.9); HEMOGLOBIN 12.8 g/dL (11.2-15.7); MCHC 27.6 g/dl (32.2-35.5); MEAN PLT VOLUME 10.1 fl (9.4-12.3); PLATELET COUNT 172 x10^3/uL (182-369); RDW 16.6 % (12.5-17.0)
[2024-06-21] MEDS: VALPROATE SODIUM 250 MG/5 ML UNIT DOSE CUP PO SCH (09:18)
[2024-06-21] MEDS: PIPERACILLIN/TAZOB 4.5 GM 4.5 GM in DEXTROSE 5%-WATER 100 ML IVPB ONE (09:18)
[2024-06-21] MEDS: QUEtiapine FUMARATE 25 MG TABLET PO SCH (09:19)
[2024-06-21 09:33] LABS: CHLORIDE 131 mmol/L (98-107); POTASSIUM 3.9 mmol/L (3.5-5.1)
[2024-06-21 09:35] LABS: CALCIUM 9.4 mg/dL (8.5-10.1); CO2 25 mmol/L (21-32); GLUCOSE,RANDOM 106 mg/dL (74-106)
[2024-06-21 09:36] LABS: BLOOD UREA NITROGEN 30.8 mg/dL (7-18)
[2024-06-21 09:39] LABS: CREATININE 0.9 mg/dL (0.55-1.3)
[2024-06-21 09:43] LABS: ANION GAP 4 mmol/L (4-13); SODIUM 161 mmol/L (136-145)
[2024-06-21] MEDS ORDERED: ENOXAPARIN NA (PORCINE) 30 MG/0.3 ML DISP.SYRIN SQ SCH (10:00)
[2024-06-21] MEDS ORDERED: MEMANTINE HCL 10 MG TABLET (FP) PO SCH (10:00)
[2024-06-21] MEDS ORDERED: ENOXAPARIN NA (PORCINE) 40 MG/0.4 ML DISP.SYRIN SQ SCH (10:00)
[2024-06-21] MEDS: PIPERACILLIN/TAZOB 3.375 GM 50 ML IVPB SCH (14:11)
[2024-06-21] MEDS: SODIUM CHLORIDE 250 ML IV STA (16:01)
[2024-06-21] MEDS: DEXTROSE 5%-WATER - 1,000 ML IV SCH (16:04)
[2024-06-21] MEDS ORDERED: ATORVASTATIN CA 40 MG TABLET (FP) PO SCH (22:00)
[2024-06-21] MEDS ORDERED: MIRTAZAPINE 15 MG TABLET (FP) PO SCH (22:00)
[2024-06-21] MEDS: PIPERACILLIN/TAZOB 4.5 GM 4.5 GM/100 ML BAG IVPB SCH (22:18)
[2024-06-22 09:27] LABS: HEMATOCRIT 39.2 % (34.1-44.9); HEMOGLOBIN 11.4 g/dL (11.2-15.7); MCHC 29.1 g/dl (32.2-35.5); MEAN CELL VOLUME 102.3 fl (79.4-94.8); MEAN PLT VOLUME 10.5 fl (9.4-12.3); PLATELET COUNT 160 x10^3/uL (182-369); RDW 16.2 % (12.5-17.0)
[2024-06-22 09:39] LABS: LACTIC ACID 2.5 mmol/L (0.4-2.0)
[2024-06-22 09:45] LABS: POTASSIUM 3.4 mmol/L (3.5-5.1)
[2024-06-22 09:56] LABS: CALCIUM 8.5 mg/dL (8.5-10.1)
[2024-06-22 09:57] LABS: BLOOD UREA NITROGEN 24.1 mg/dL (7-18); MAGNESIUM 2.1 mg/dL (1.8-2.4)
[2024-06-22 10:01] LABS: BILIRUBIN,TOTAL 0.7 mg/dL (0.2-1); TOT PROT 5.4 g/dl (6.4-8.2)
[2024-06-22] MEDS ORDERED: SODIUM CHLORIDE 0.45% 1,000 ML IV SCH (10:45)
[2024-06-22] MEDS: POLYETHYLENE GLYCOL (HEALTHYLAX) 3350 17 GM PACKET PO SCH (11:00)
[2024-06-22] MEDS ORDERED: DEXTROSE 5%-WATER - 1,000 ML with POTASSIUM CHLORIDE 10 MEQ IV SCH (12:00)
[2024-06-22] MEDS: POTASSIUM CHLORIDE 10 MEQ in DEXTROSE 5%-WATER - 1,000 ML IV SCH (14:31)
[2024-06-22] MEDS: KCL 10 MEQ IVPB 10 MEQ/100 ML INFUS.BAG IVPB SCH (15:45)
[2024-06-23 07:56] LABS: HEMATOCRIT 36.7 % (34.1-44.9); HEMOGLOBIN 10.8 g/dL (11.2-15.7); MCHC 29.4 g/dl (32.2-35.5); MEAN CELL VOLUME 99.5 fl (79.4-94.8); PLATELET COUNT 145 x10^3/uL (182-369); RDW 15.9 % (12.5-17.0)
[2024-06-23 08:21] LABS: CHLORIDE 116 mmol/L (98-107); SODIUM 148 mmol/L (136-145)
[2024-06-23 08:27] LABS: CALCIUM 8.2 mg/dL (8.5-10.1)
[2024-06-23 08:28] LABS: ALBUMIN 1.7 g/dl (3.4-5.0); BLOOD UREA NITROGEN 15.6 mg/dL (7-18); CO2 26 mmol/L (21-32); GLUCOSE,RANDOM 96 mg/dL (74-106); MAGNESIUM 1.9 mg/dL (1.8-2.4)
[2024-06-23 08:31] LABS: CREATININE 0.8 mg/dL (0.55-1.3); SGOT/AST 31 U/L (15-37); SGPT/ALT 13 U/L (13-61)
[2024-06-23 08:33] LABS: ANION GAP 6 mmol/L (4-13); BILIRUBIN,TOTAL 0.6 mg/dL (0.2-1); POTASSIUM 2.9 mmol/L (3.5-5.1); TOT PROT 4.8 g/dl (6.4-8.2)
[2024-06-23 08:34] LABS: ALK PHOS 65 U/L (45-117)
[2024-06-23] MEDS: KCL 10 MEQ IVPB 10 MEQ/100 ML INFUS.BAG IVPB SCH (09:47)
[2024-06-23] MEDS: POTASSIUM CHLORIDE 20 MEQ in DEXTROSE 5%-WATER - 1,000 ML IV SCH (14:48)
[2024-06-23 14:56] LABS: POTASSIUM 3.8 mmol/L (3.5-5.1)
[2024-06-23 14:57] LABS: CALCIUM 8.5 mg/dL (8.5-10.1)
[2024-06-23 14:58] LABS: BLOOD UREA NITROGEN 12.4 mg/dL (7-18)
[2024-06-23 15:01] LABS: CREATININE 0.7 mg/dL (0.55-1.3)
[2024-06-24] MEDS: SENNOSIDES 8.6MG TABLET (FP) PO PRN (09:19)
[2024-06-24 10:35] LABS: HEMATOCRIT 35.1 % (34.1-44.9); HEMOGLOBIN 10.6 g/dL (11.2-15.7); MCHC 30.2 g/dl (32.2-35.5); MEAN CELL VOLUME 97.5 fl (79.4-94.8); MEAN PLT VOLUME 10.1 fl (9.4-12.3); PLATELET COUNT 147 x10^3/uL (182-369); RDW 15.6 % (12.5-17.0)
[2024-06-24 10:59] LABS: POTASSIUM 3.4 mmol/L (3.5-5.1)
[2024-06-24 11:01] LABS: ALBUMIN 1.4 g/dl (3.4-5.0); BLOOD UREA NITROGEN 7.6 mg/dL (7-18); CALCIUM 7.8 mg/dL (8.5-10.1); MAGNESIUM 1.7 mg/dL (1.8-2.4)
[2024-06-24 11:05] LABS: CREATININE 0.6 mg/dL (0.55-1.3)
[2024-06-24 11:06] LABS: BILIRUBIN,TOTAL 0.3 mg/dL (0.2-1); TOT PROT 4.3 g/dl (6.4-8.2)
[2024-06-24] MEDS ORDERED: MAGNESIUM 2GM/50ML STERILE WATER IVPB IVPB ONE (13:15)
[2024-06-24] MEDS: KCL 10 MEQ IVPB 10 MEQ/100 ML INFUS.BAG IVPB SCH (14:34)
[2024-06-24 15:08] VITALS: BMI 29.0
[2024-06-24] MEDS: POTASSIUM CHLORIDE 20 MEQ in DEXTROSE 5%-WATER - 1,000 ML IV SCH (16:34)
[2024-06-24] MEDS: MAGNESIUM 2GM/50ML STERILE WATER IVPB IVPB ONE (16:36)
[2024-06-24] MEDS ORDERED: KCL 10 MEQ IVPB 10 MEQ/100 ML INFUS.BAG IVPB SCH (19:00)
[2024-06-24 20:10] VITALS: BP 100/57; PULSE 79; RESP 18; TEMP 97.3
== END 2024-06-24 20:17 | DRG 871 ==
LOC: JER 11:18 → JERBED 17:13 → J4S 22:54
PROVIDERS: ADMIT Internal Medicine
DX: A41.9 Sepsis, unspecified organism (principal); J18.9 Pneumonia, unspecified organism; I50.22 Chronic systolic (congestive) heart failure; E87.20 Acidosis, unspecified; E87.0 Hyperosmolality and hypernatremia; I24.89 Other forms of acute ischemic heart disease; E87.29 Other acidosis; N39.0 Urinary tract infection, site not specified; R65.20 Severe sepsis without septic shock; K52.9 Noninfective gastroenteritis and colitis, unspecified; F03.90 Unspecified dementia, unspecified severity, without behavioral disturbance, psychotic disturbance, mood disturbance, and anxiety; B96.20 Unspecified Escherichia coli [E. coli] as the cause of diseases classified elsewhere; B96.4 Proteus (mirabilis) (morganii) as the cause of diseases classified elsewhere; R62.7 Adult failure to thrive
CPT/HCPCS: 0241U-QW; 36415; 71045-TC-FY; 74176-TC; 80048; 80053; 81003; 82550; 82553; 82570; 82803; 82962; 83036; 83605; 83690; 83735; 83880; 83930; 84100; 84300; 84484; 85025; 85027; 87040; 87081; 87086; 87186; 93005; 93010; 99291; J0131; J1644